=== PATIENT | female | born 1950 | race Caucasian/White ===

== ENCOUNTER 2023-04-18 16:51 | Emergency (ER) | payer BC ==
[~2023-04-18] VITALS: Ht 157.5 cm; Wt 99.1 kg
[2023-04-18 16:55] VITALS: BP 150/93; PULSE 98; RESP 16; TEMP 98.3; O2SAT 100
== END 2023-04-18 18:17 | disposition home or self-care (01) ==
LOC: ER 16:52
DX: R60.0 Localized edema (principal); Z88.0 Allergy status to penicillin
CPT/HCPCS: 93971; 99284

== ENCOUNTER 2023-11-09 06:42 | Emergency (ER) | payer BC ==
[~2023-11-09] VITALS: Ht 157.5 cm; Wt 92.2 kg
[2023-11-09] MEDS: normal saline 1000ML IV soln IVB ONE ×3 (07:40→10:16)
[2023-11-09] MEDS: ondansetron/PF 4mg/2ml inj IV ONE (08:30)
[2023-11-09] MEDS: glycopyrrolate 0.2mg/ml inj IV ONE (08:30)
[2023-11-09 08:31] LABS: BASOPHILS % (AUTO) 0.6 % (0-1); EOSINOPHILS # (AUTO) 0.1 X10'3 (0-0.9); EOSINOPHILS % (AUTO) 2.2 % (0-6); HEMATOCRIT 44.6 % (35.0-45.0); HEMOGLOBIN 14.8 g/dl (12.0-16.0); LYMPHOCYTES # (AUTO) 0.9 X10'3 (1.1-4.8); LYMPHOCYTES % (AUTO) 16.7 % (21-51); MEAN CORPUSCULAR HEMOGLOBIN 26.8 PG (27.0-31.0); MEAN CORPUSCULAR HGB CONC 33.1 g/dL (33.0-36.5); MEAN CORPUSCULAR VOLUME 80.8 FL (78-98); MEAN PLATELET VOLUME 7.8 FL (7.4-10.4); MONOCYTES # (AUTO) 0.7 X10'3 (0-0.9); MONOCYTES % (AUTO) 11.7 % (2-12); NEUTROPHILS # (AUTO) 3.9 X10'3 (1.8-7.7); NEUTROPHILS % (AUTO) 68.8 % (42-75); PLATELET COUNT 279 X10'3 (140-440); RED BLOOD COUNT 5.52 X10'6 (4.20-5.60); WHITE BLOOD COUNT 5.6 X10'3 (4.5-11.0)
[2023-11-09 08:41] LABS: ALANINE AMINOTRANSFERASE 70 U/L (12-78); ALBUMIN 2.6 G/DL (3.4-5.0); ALBUMIN/GLOBULIN RATIO 0.7 (1.1-1.5); ALKALINE PHOSPHATASE 91 IU/L (46-116); ANION GAP 12 (8-16); ASPARTATE AMINO TRANSFERASE 41 U/L (10-37); BILIRUBIN,TOTAL 0.5 MG/DL (0.1-1.0); BLOOD UREA NITROGEN 16 MG/DL (7-18); BUN/CREATININE RATIO 17.4 (10.0-20.0); CALCIUM 8.6 MG/DL (8.5-10.1); CHLORIDE 97 MMOL/L (99-107); CREATININE 0.92 MG/DL (0.40-0.90); GLUCOSE 241 MG/DL (70-104); LIPASE 54 U/L (16-77); SODIUM 131 MMOL/L (135-145); TOTAL PROTEIN 6.3 G/DL (6.4-8.2); eCRCL 43 ML/MIN; eGFR 60 ML/MIN
[2023-11-09] MEDS ORDERED: ONDA-243 PO (10:00)
[2023-11-09] MEDS ORDERED: DICY10CA88 PO (10:00)
[2023-11-09 11:31] VITALS: TEMP 97.7
[2023-11-09 12:48] VITALS: BP 114/61; PULSE 80; RESP 16; O2SAT 96
== END 2023-11-09 12:49 | disposition home or self-care (01) ==
LOC: ER 06:43
DX: R19.7 Diarrhea, unspecified (principal); R11.2 Nausea with vomiting, unspecified; E86.0 Dehydration; J44.9 Chronic obstructive pulmonary disease, unspecified; E11.9 Type 2 diabetes mellitus without complications; Z98.890 Other specified postprocedural states; Z88.0 Allergy status to penicillin; Z20.822 Contact with and (suspected) exposure to COVID-19
CPT/HCPCS: 36415; 74176; 80053; 83690; 84145; 85025; 87502; 87503; 87811; 96361; 96374; 96375; 99285; J2405; J3490; J7030